=== PATIENT | female | born 1995 | race American Indian/Alaskan Native ===

== ENCOUNTER 2018-09-24 01:43 | Inpatient (IN) | payer MEDICAID ==
[2018-09-24] MEDS ORDERED: XYLOCAINE 2% INFILTRATI ONE (02:26)
[2018-09-24] MEDS ORDERED: PITOCin/NS 20 UNIT/1000ML DRIP 20,000 MILLIUNITS/1,000 ML BAG IV ONE (03:59)
[2018-09-24] MEDS ORDERED: IBUPROFEN PO ONE (04:00)
[2018-09-24] MEDS: NORCO 5/325 PO PRN ×3 (04:03→20:03)
[2018-09-24] MEDS ORDERED: CYTOTEC PR ONE ×2 (04:18)
--- NOTE | 2018-09-24 04:54 | History and Physical Report ---
History of Present Illness Date of examination: 09/24/18 Date of admission: 09/24/18 01:43 Chief complaint: I delivered [place] the gas station History of present illness: Pt is a 22 year old LINH 09/27/18 at 39w4d who presents after a precipitous delivery [place] a gas station. The patient lives in [place] was in town visiting friends. She went to the restroom at a gas station when her water broke at 12:20 AM. She reports shortly thereafter that she felt the baby's head coming out and she delivered her baby at 12:24 AM. The paramedics were then called and the patient was then brought to the hospital for further evaluation. The placenta was delivered in the ambulance. The patient reports having care with no issues in [place] however her records are unavailable. Past History Past Medical History: asthma Past Surgical History: no surgical history Family/Genetic History: diabetes Social history: no significant social history - Obstetrical History Expected Date of Delivery: 09/27/18 Actual Gestation: 39 Week(s) 4 Day(s) : 2 Para: 1 Hx # Term Pregnancies: 1 Number of Pregnancies: 0 Spontaneous Abortions: 0 Induced : 0 Number of Living Children: 1 Medications and Allergies Allergies Allergy/AdvReac Type Severity Reaction Status Date / Time No Known Allergies Allergy Unverified 09/24/18 02:13 Active Meds: Active Medications Acetaminophen/Hydrocodone Bitart ([place] 5/325) 2 each PO Q4H PRN PRN Reason: Pain, Moderate (4-6) Last Admin: 09/24/18 04:03 Dose: 2 each Documented by: Ibuprofen (Ibuprofen) 600 mg PO Q6HR LAURA Review of Systems All systems: negative - Vital Signs Vital signs: Vital Signs Pulse BP 71 147/91 09/24/18 02:06 09/24/18 02:06 Temp Pulse Resp BP Pulse Ox 89 137/77 09/24/18 04:21 09/24/18 04:21 - Physical Exam Breasts: Positive: deferred Cardiovascular: Regular rate Lungs: Positive: Clear to auscultation Abdomen: Positive: soft (gravid) Uterus: Positive: enlarged (gravid ) Extremities: Positive: normal Results All other labs normal. Assessment and Plan A: IUP at 39w4d s/p preciptious delivery at outside location GBS unknown P: Admit to labor and delivery Routine care
[2018-09-24] MEDS ORDERED: DERMOPLAST TP PRN (04:58)
[2018-09-24] MEDS ORDERED: DULCOLAX PR PRN (04:58)
[2018-09-24] MEDS ORDERED: MILK OF MAGNESIA PO PRN (04:58)
[2018-09-24] MEDS ORDERED: TYLENOL PO PRN (04:58)
[2018-09-24] MEDS ORDERED: PHENERGAN PR PRN (04:58)
[2018-09-24] MEDS ORDERED: LANSINOH TP PRN ×2 (04:58)
[2018-09-24] MEDS ORDERED: PHENERGAN PO PRN (04:58)
[2018-09-24] MEDS ORDERED: ZOFRAN IV PRN (04:58)
[2018-09-24] MEDS ORDERED: BENADRYL PO PRN (04:58)
--- NOTE | 2018-09-24 04:58 | Procedure Note ---
OB Delivery Note - Delivery Date of Delivery: 09/24/18 Surgeon: ARIANNE OLSEN Estimated blood loss: 300cc (based on chucks visible at hospital) - Vaginal Delivery presentation: vertex Intrapartum events: precipitous labor- <3hr, uterine atony Delivery induction: none Delivery monitor: none Route of delivery: Delivery placenta: spontaneous Episiotomy: none Delivery laceration: 2nd degree, other (Bilateral periurethral hemostatic without repair ) Delivery repair: vicryl Anesthesia: local, intravenous Delivery comments: Delivery of fetus was by the patient and was unattended. Delivery of placenta by paramedics in ambulance. Examination of vagina and perineum by on-call MD and repair of second degree perineal laceration. - Infant A at 1 minute: 10 at 5 minutes: 10 Gender: Female (3579g (7lb 14 oz) @ 0024 am)
[2018-09-24] MEDS ORDERED: SODIUM CHLORIDE FLUSH SYRINGE 10 ML IV NR (05:00)
[2018-09-24] MEDS ORDERED: PITOCin/NS 20 UNIT/1000ML DRIP 20 UNITS/1,000 ML BAG IV SCH (05:00)
[2018-09-24] MEDS ORDERED: IBUPROFEN PO SCH (06:00)
[2018-09-24] MEDS: TUCKS PAD TP PRN (06:44)
[2018-09-24] MEDS: IBUPROFEN PO SCH ×2 (12:00→20:03)
[2018-09-24] MEDS: FEOSOL PO SCH ×2 (12:07→22:43)
[2018-09-24 16:52] LABS: Hematocrit 31.6 % (30.3-42.9); Hemoglobin 10.7 gm/dl (10.1-14.3)
[2018-09-24] MEDS: METHERGINE PO SCH (20:02)
[2018-09-25] MEDS: NORCO 5/325 PO PRN ×3 (02:33→23:08)
[2018-09-25] MEDS: IBUPROFEN PO SCH ×5 (02:34→23:08)
[2018-09-25] MEDS: METHERGINE PO SCH ×3 (04:38→23:01)
[2018-09-25] MEDS ORDERED: BOOSTRIX IM ONE (06:00)
[2018-09-25] MEDS ORDERED: M-M-R II VACCINE SUB-Q ONE (06:00)
[2018-09-25] MEDS: FEOSOL PO SCH ×2 (09:40→23:02)
--- NOTE | 2018-09-25 12:01 | Progress Note ---
Assessment and Plan A: PPD#1 s/p at term (unattended at outside location), Asymptomatic anemia Baby must be observed for 48 hrs P: Routine care Discharge home early tomorrow. Subjective - Subjective Date of service: 09/25/18 Principal diagnosis: s/p at term Interval history: Pt is comfortable without complaints today. She is requesting discharge to that she can head back to [place]. Patient reports: appetite normal, voiding normally, ambulating normally [place]: doing well Objective - Vital Signs Latest vital signs: Vital Signs Temp Pulse Resp BP BP Pulse Ox 09/25/18 07:58 98.2 F 59 L 20 120/67 95 09/25/18 01:05 97.8 F 58 L 20 118/76 98 09/24/18 15:06 98.1 F 88 18 119/78 98 09/24/18 12:05 98 F 66 18 109/64 98 Intake and Output 09/24/18 09/25/18 09/25/18 22:59 06:59 14:59 Intake Total 1080 240 240 Balance 1080 240 240 Intake: Oral 1080 240 240 Other: Total, Intake Amount 240 240 240 # Voids Void 1 1 1 - Exam Breasts: Present: deferred Cardiovascular: Present: Regular rate Lungs: Present: Clear to auscultation Abdomen: Present: soft Uterus: Present: fundal height below umbilicus Extremities: Present: normal
--- NOTE | 2018-09-25 12:03 | Discharge Summary ---
Providers - Providers Date of Admission: 09/24/18 01:43 Date of discharge: 09/26/18 Attending physician: ARIANNE OLSEN Primary care physician: ARIANNE OLSEN Hospitalization Reason for admission: other (s/p ) Delivery: Procedure details: Please see delivery note. Episiotomy: none Laceration: 2nd degree, other (Bilateral periurethral ) Other procedures: none complications: none Discharge diagnosis: IUP at term delivered [place] baby: female Hospital course: Patient was admitted after having a precipitous delivery at an outside location. Her course was uncomplicated and she met discharge criteria on day #2. She should follow up in the office in 4 weeks. Condition at discharge: Stable Disposition: - TO HOME OR SELFCARE - Discharge Diagnoses (1) Spontaneous vaginal delivery Status: Acute (2) Term of female Status: Acute (3) Anemia Status: Acute Qualifiers: Anemia type: unspecified type Qualified Code(s): D64.9 - Anemia, unspecified Plan - Discharge Medications Prescriptions: Ibuprofen [Motrin] 800 mg PO Q8HR PRN #30 tablet PRN Reason: Pain, Moderate (4-6) HYDROcodone/APAP 5-325 [[place] 5/325] 1 each PO Q6HR PRN #20 tablet PRN Reason: Pain - Provider Discharge Summary Activity: routine, no sex for 6 weeks, no heavy lifting 4 weeks, no strenuous exercise Diet: routine Instructions: routine Additional instructions: [] Smoking cessation referral if applicable(refer to patient education folder for contact #) [] Refer to [facility] Booklet Call your doctor immediately for: * Fever > 100.5 * Heavy vaginal bleeding ( >1 pad per hour) * Severe persistent headache * Shortness of breath * Reddened, hot, painful area to leg or breast * Drainage or odor from incision. * Keep incision clean and dry at all times and follow doctor's instructions regarding bathing/showering - Follow up plan Follow up: ARIANNE OLSEN MD [Primary Care Provider] - 10/24/18 (Please call to schedule appt )
[2018-09-26] MEDS: IBUPROFEN PO SCH ×3 (05:43→17:22)
[2018-09-26] MEDS: NORCO 5/325 PO PRN ×3 (05:44→14:41)
[2018-09-26] MEDS: METHERGINE PO SCH (08:11)
[2018-09-26] MEDS: FEOSOL PO SCH (11:31)
[2018-09-26 16:25] VITALS: BP 126/82
[2018-09-26] MEDS: TUCKS PAD TP PRN (17:23)
== END 2018-09-26 20:30 | disposition home or self-care (01) | DRG 769 ==
LOC: LD 01:43 → OB 06:09
PROVIDERS: ADMIT Obstetrics & Gynecology; ATTEND Obstetrics & Gynecology
PROC: 0KQM0ZZ Repair Perineum Muscle, Open Approach (ICD-10-PCS; principal; 2018-09-24)
PROC: 3E0234Z Introduction of Serum, Toxoid and Vaccine into Muscle, Percutaneous Approach (ICD-10-PCS; 2018-09-24)
DX: O70.1 Second degree perineal laceration during delivery (principal); O71.82 Other specified trauma to perineum and vulva; O90.81 Anemia of the puerperium; O99.53 Diseases of the respiratory system complicating the puerperium; D64.9 Anemia, unspecified; Z23 Encounter for immunization; J45.909 Unspecified asthma, uncomplicated
CPT/HCPCS: 36415; 85014; 85018; 85461; 86592; 86705; 86706; 86762; 86850; 86870; 86900; 86901; 87806; 88307; 90471; 90715; G0378; J2405; J2590; J2790; Q0169